=== PATIENT | female | born 1980 ===

== ENCOUNTER 2018-07-19 15:56 | Emergency (ER) | payer OTHER ==
[~2018-07-19] VITALS: Ht 167.6 cm; Wt 72.6 kg
[2018-07-19] MEDS ORDERED: PAXIL20 MG (16:16)
[2018-07-19] MEDS ORDERED: CLONAZEPAM1 MG (16:16)
[2018-07-19] MEDS ORDERED: PNEU16DI2 (16:17)
[2018-07-19] MEDS ORDERED: FIORINAL-COD 31 EACH (16:17)
== END 2018-07-19 21:16 | disposition home or self-care (01) ==
LOC: ER 15:56
DX: G43.909 Migraine, unspecified, not intractable, without status migrainosus (principal)